=== PATIENT | male | born 1955 | race Caucasian/White ===

== ENCOUNTER 2016-12-16 08:54 | Inpatient (IN) | payer OTHER ==
[~2016-12-16] VITALS: Ht 172.7 cm; Wt 71.7 kg
[~2016-12-16 08:54] MED LIST: B COMPLETE1 EACH PO; CITRACAL + D C1 EACH PO; MILK THISTLE500 MG PO; MULTI-DAY VITA1 EACH PO; PREGNENOLONE; SPIRONOLACTONE50 MG PO; VITAMIN D33000 UNIT PO; [UNRECOGNIZED DRUG - OTHER]
[2016-12-16 09:59] LABS: HEMATOCRIT 24.6 % (38.0-50.0); MCH 34.2 PG (29.0-34.0); MCHC 32.9 G/DL (30.0-36.0); MCV 103.8 FL (86-99); RBC DIS.WIDTH-CV 17.4 % (11.8-14.6); RBC DIS.WIDTH-SD 61.9 % (39-53); RED BLOOD COUNT 2.37 M/uL (4.00-5.50); WHITE BLOOD COUNT 2.3 K/uL (4.1-10.2)
[2016-12-16 10:06] LABS: EOSINOPHIL (%) 8.7 % (0-5); EOSINOPHIL COUNT 0.2 K/uL (0-0.3); LYMPHOCYTE COUNT 0.3 K/uL (1.0-2.8); MONOCYTE (%) 14.8 % (3-12); MONOCYTE COUNT 0.3 K/uL (0-0.8); NEUTROPHIL (%) 61.7 % (45-76); NEUTROPHIL COUNT 1.4 K/uL (1.8-6.4)
[2016-12-16 10:10] LABS: CHLORIDE 110 mEq/L (99-109); POTASSIUM 3.9 mEq/L (3.7-5.4); SODIUM 136 mEq/L (136-147)
[2016-12-16 10:14] LABS: ANION GAP 5 MEQ/L (2-14); TOTAL BILIRUBIN 2.6 mg/dL (0.0-1.0)
[2016-12-16 10:16] LABS: ALKALINE PHOSPHATASE 97 IU/L (3-129); GFR ESTIMATE (CALCULATED) > 59 mL/min/
[2016-12-16 10:17] LABS: UREA NITROGEN (BUN) 18 mg/dL (9-23)
[2016-12-16 10:19] LABS: LIPASE 51 U/L (1.0-51.0)
[2016-12-16 10:23] LABS: INTER. NORMALIZED RATIO 1.4
[2016-12-16 10:38] LABS: GLUCOSE 100 mg/dL (70-99)
[2016-12-16 10:55] LABS: PLAT.SUFFICIENCY DECREASED; PLATELET COUNT 21 K/uL (156-360); USER ID STC
[2016-12-16 12:03] LABS: MEAN PLAT.VOLUME 9.1 uM^3 (9.0-12.4)
[2016-12-16] MEDS ORDERED: ALDACTONE100 MG PO (12:59)
[2016-12-16] MEDS ORDERED: CITRACAL PLUS1 EAC1 PO (13:00)
[2016-12-16] MEDS ORDERED: VITAMIN D33000 UNIT PO (13:01)
[2016-12-16] MEDS ORDERED: B-COMPLEX-VITA1 EACH PO (13:01)
[2016-12-16] MEDS ORDERED: MILK THISTLE500 MG PO (13:02)
[2016-12-16] MEDS ORDERED: [UNRECOGNIZED DRUG - OTHER] PO (13:03)
[2016-12-16] MEDS ORDERED: LASIX40 MG PO (13:04)
[2016-12-16] MEDS ORDERED: LEXAPRO10 MG PO (13:05)
[2016-12-16] MEDS ORDERED: PREGNENOLONE PO (13:06)
[2016-12-16] MEDS ORDERED: GLUTATHIONE PO (13:07)
[2016-12-16 19:44] LABS: ADD MIUA? NO; BILIRUBIN NEGATIVE; BLOOD NEGATIVE; COLOR YELLOW ((YELLOW)); GLUCOSE (STRIP) NEGATIVE; KETONES NEGATIVE; LEUKOCYTES NEGATIVE; NITRITE NEGATIVE; PROTEIN (STRIP) NEGATIVE; SPECIFIC GRAVITY 1.014 (1.000-1.030)
[2016-12-16 20:50] VITALS: BP 108/57
[2016-12-16 23:06] VITALS: BP 129/61
[2016-12-16 23:23] VITALS: BP 102/70
[2016-12-17] VITALS (13 sets, daily range): BP systolic 94–117; BP diastolic 51–64
[2016-12-17 06:20] LABS: HEMATOCRIT 28.1 % (38.0-50.0); MCH 33.7 PG (29.0-34.0); MCHC 33.8 G/DL (30.0-36.0); RBC DIS.WIDTH-CV 18.7 % (11.8-14.6); RBC DIS.WIDTH-SD 63.4 % (39-53); RED BLOOD COUNT 2.82 M/uL (4.00-5.50); WHITE BLOOD COUNT 2.7 K/uL (4.1-10.2)
[2016-12-17 06:24] LABS: CHLORIDE 112 mEq/L (99-109); POTASSIUM 4.1 mEq/L (3.7-5.4); SODIUM 137 mEq/L (136-147)
[2016-12-17 06:25] LABS: MCV 99.6 FL (86-99)
[2016-12-17 06:26] LABS: GLUCOSE 75 mg/dL (70-99)
[2016-12-17 06:27] LABS: ANION GAP 3 MEQ/L (2-14)
[2016-12-17 06:30] LABS: ALKALINE PHOSPHATASE 94 IU/L (3-129); GFR ESTIMATE (CALCULATED) > 59 mL/min/
[2016-12-17 06:31] LABS: UREA NITROGEN (BUN) 17 mg/dL (9-23)
[2016-12-17 06:40] LABS: TOTAL BILIRUBIN 3.5 mg/dL (0.0-1.0)
[2016-12-17 07:09] LABS: MEAN PLAT.VOLUME 12.3 uM^3 (9.0-12.4); PLATELET COUNT 28 K/uL (156-360)
[2016-12-17 07:34] LABS: ADD MIUA? YES; BILIRUBIN NEGATIVE; BLOOD SMALL; COLOR YELLOW ((YELLOW)); GLUCOSE (STRIP) NEGATIVE; KETONES NEGATIVE; LEUKOCYTES NEGATIVE; NITRITE NEGATIVE; PROTEIN (STRIP) NEGATIVE; SPECIFIC GRAVITY 1.016 (1.000-1.030)
[2016-12-17 07:40] LABS: BACTERIA NONE SEEN /HPF; EPITHELIAL CELLS NONE SEEN /HPF; GRANULAR CASTS 0-5 /LPF; HYALINE CASTS 0-5 /LPF; MUCUS TRACE /LPF; RED BLOOD CELLS 0-5 /HPF (0-5); WAXY CASTS 0-5 /LPF; WHITE BLOOD CELLS 0-5 /HPF (0-5); WHITE BLOOD CELLS CLUMP RARE /HPF (0-5)
[2016-12-18 04:18] VITALS: BP 99/56
[2016-12-18 06:19] LABS: ALKALINE PHOSPHATASE 85 IU/L (3-129); ANION GAP 4 MEQ/L (2-14); CHLORIDE 109 MEQ/L (99-109); GFR ESTIMATE (CALCULATED) > 59 mL/min/; GLUCOSE 92 mg/dL (70-99); SAMPLE HEMOLYSIS CHECK 0; SAMPLE ICTERIC CHECK 1; SAMPLE LIPEMIA CHECK 0; SODIUM 132 MEQ/L (136-147); TOTAL BILIRUBIN 3.4 MG/DL (0.0-1.0); UREA NITROGEN (BUN) 16 mg/dL (9-23)
[2016-12-18 07:33] LABS: HEMATOCRIT 27.7 % (38.0-50.0); MCH 32.6 PG (29.0-34.0); MCHC 33.6 G/DL (30.0-36.0); MCV 97.2 FL (86-99); PLATELET COUNT UNABLE TO REPORT K/uL (156-360); RBC DIS.WIDTH-SD 66.1 % (39-53); RED BLOOD COUNT 2.85 M/uL (4.00-5.50); WHITE BLOOD COUNT 2.6 K/uL (4.1-10.2)
[2016-12-18 08:00] VITALS: BP 105/63
[2016-12-18 17:14] VITALS: BP 104/59
[2016-12-19] VITALS: BP 98/54
[2016-12-19 06:50] LABS: EOSINOPHIL (%) 11.3 % (0-5); EOSINOPHIL COUNT 0.3 K/uL (0-0.3); IMMATURE GRANULOCYTE (%) 0.4 % (0.0-0.7); INSTRUMENT ABS NEUTROPHIL CT 1.6 K/uL; LYMPHOCYTE COUNT 0.5 K/uL (1.0-2.8); MCH 33.2 PG (29.0-34.0); MCHC 33.3 G/DL (30.0-36.0); MCV 99.6 FL (86-99); MONOCYTE (%) 9.8 % (3-12); MONOCYTE COUNT 0.3 K/uL (0-0.8); NEUTROPHIL (%) 60.8 % (45-76); NEUTROPHIL COUNT 1.6 K/uL (1.8-6.4); RBC DIS.WIDTH-CV 18.7 % (11.8-14.6); RBC DIS.WIDTH-SD 65.5 % (39-53); RED BLOOD COUNT 2.71 M/uL (4.00-5.50); WHITE BLOOD COUNT 2.7 K/uL (4.1-10.2)
[2016-12-19 07:08] LABS: ANION GAP 4 MEQ/L (2-14); CHLORIDE 110 MEQ/L (99-109); GFR ESTIMATE (CALCULATED) > 59 mL/min/; GLUCOSE 87 mg/dL (70-99); POTASSIUM 3.9 MEQ/L (3.7-5.4); SAMPLE HEMOLYSIS CHECK 0; SAMPLE ICTERIC CHECK 1; SAMPLE LIPEMIA CHECK 0; SODIUM 135 MEQ/L (136-147); UREA NITROGEN (BUN) 14 mg/dL (9-23)
[2016-12-19 07:44] LABS: ABS NEUTROPHIL COUNT 2.2; ANISOCYTOSIS 2+; BAND NEUTROPHILS 5.2 % (0-8.0); BASOPHILS 0.9 %; EOSINOPHIL ABS CT 0.2; EOSINOPHILS 7.8 % (0-5.0); IMM.PLATELET FRACTION 2.2 (1-7); LYMPHOCYTES 8.7 % (15.0-45.0); MACROCYTES 2+; MICROCYTOSIS 1+; PLATELET COUNT 24 K/uL (156-360); POLYCHROMASIA 1+; SEG.NEUTROPHILS 75.7 % (46.0-76.0); SMUDGE CELLS 9.6
[2016-12-19 07:45] LABS: PLAT.SUFFICIENCY DECREASED
[2016-12-19 08:46] VITALS: BP 107/57
[2016-12-19 12:13] VITALS: BP 127/68
== END 2016-12-19 16:55 | disposition home or self-care (01) | DRG 442 ==
LOC: EME 08:54 → EDOF 14:00 → 4SOUTH 14:00
PROVIDERS: Emergency Medicine; Internal Medicine; Internal Medicine Gastroenterology
PROC: 30233N1 Transfusion of Nonautologous Red Blood Cells into Peripheral Vein, Percutaneous Approach (ICD-10-PCS; principal; 2016-12-16)
DX: K72.90 Hepatic failure, unspecified without coma (principal); D61.818 Other pancytopenia; C22.0 Liver cell carcinoma; E87.1 Hypo-osmolality and hyponatremia; K21.9 Gastro-esophageal reflux disease without esophagitis; L43.3 Subacute (active) lichen planus; B19.20 Unspecified viral hepatitis C without hepatic coma; K74.60 Unspecified cirrhosis of liver; F32.9 Major depressive disorder, single episode, unspecified; Z87.891 Personal history of nicotine dependence
CPT/HCPCS: 76705; 80048; 80053; 81003; 82105 90; 82140; 83605; 83690; 85025; 85027; 85610; 85730; 86850; 86900; 86901; 86920; 87040; 87070; 87205; 89051; 99281; 99285; J2405; P9016

== ENCOUNTER 2016-12-21 11:28 | Inpatient (IN) | payer OTHER ==
[~2016-12-21] VITALS: Ht 170.2 cm; Wt 65.6 kg
[~2016-12-21 11:28] MED LIST changes: +ALDACTONE100 MG PO; +B-COMPLEX-VITA1 EACH PO; +CITRACAL PLUS1 EAC1 PO; +GLUTATHIONE PO; +LASIX40 MG PO; +LEXAPRO10 MG PO; +PREGNENOLONE PO; +[UNRECOGNIZED DRUG - OTHER] PO
[2016-12-21 13:05] LABS: CHLORIDE 116 mEq/L (99-109); POTASSIUM 3.8 mEq/L (3.7-5.4)
[2016-12-21 13:06] LABS: SODIUM 143 mEq/L (136-147)
[2016-12-21 13:08] LABS: GLUCOSE 112 mg/dL (70-99)
[2016-12-21 13:09] LABS: ANION GAP 6 MEQ/L (2-14)
[2016-12-21 13:10] LABS: TOTAL BILIRUBIN 4.3 mg/dL (0.0-1.0)
[2016-12-21 13:11] LABS: ALKALINE PHOSPHATASE 105 IU/L (3-129); GFR ESTIMATE (CALCULATED) > 59 mL/min/
[2016-12-21 13:15] LABS: TROP-I INTERPRETATION NEGATIVE; TROPONIN-I 0.01 ng/mL (0.0-0.30); UREA NITROGEN (BUN) 24 mg/dL (9-23)
[2016-12-21 13:29] LABS: HEMATOCRIT 29.6 % (38.0-50.0); MCHC 34.1 G/DL (30.0-36.0); MCV 99.7 FL (86-99); RBC DIS.WIDTH-CV 18.6 % (11.8-14.6); RBC DIS.WIDTH-SD 66.4 % (39-53); RED BLOOD COUNT 2.97 M/uL (4.00-5.50); WHITE BLOOD COUNT 2.9 K/uL (4.1-10.2)
[2016-12-21 13:33] LABS: IMM.PLATELET FRACTION 1.7 (1-7); MEAN PLAT.VOLUME 11.4 uM^3 (9.0-12.4)
[2016-12-21 13:37] LABS: PLATELET COUNT 33 K/uL (156-360)
[2016-12-21 14:20] LABS: ADD MIUA? YES; BILIRUBIN NEGATIVE; BLOOD MODERATE; COLOR AMBER ((YELLOW)); GLUCOSE (STRIP) NEGATIVE; KETONES NEGATIVE; LEUKOCYTES NEGATIVE; NITRITE NEGATIVE; PROTEIN (STRIP) NEGATIVE; SPECIFIC GRAVITY 1.024 (1.000-1.030)
[2016-12-21 14:25] LABS: BACTERIA NONE SEEN /HPF; EPITHELIAL CELLS RARE /HPF; HYALINE CASTS TNTC /LPF; MUCUS TRACE /LPF; UCUL ADDED? NO; WHITE BLOOD CELLS 0-5 /HPF (0-5)
[2016-12-21] MEDS ORDERED: PROMETHAZINE12.5 M1 PO (14:45)
[2016-12-21] MEDS ORDERED: GENERLAC10 GM/15 M PO (14:45)
[2016-12-21 19:40] VITALS: BP 112/64
[2016-12-21 19:50] VITALS: BP 112/64
[2016-12-22] VITALS (7 sets, daily range): BP systolic 95–112; BP diastolic 53–66
[2016-12-22 06:41] LABS: MCH 33.5 PG (29.0-34.0); MCV 101.5 FL (86-99); RBC DIS.WIDTH-CV 19.3 % (11.8-14.6); RBC DIS.WIDTH-SD 70.4 % (39-53); RED BLOOD COUNT 2.66 M/uL (4.00-5.50); WHITE BLOOD COUNT 2.1 K/uL (4.1-10.2)
[2016-12-22 07:26] LABS: ALKALINE PHOSPHATASE 87 IU/L (3-129); ANION GAP 6 MEQ/L (2-14); CHLORIDE 114 MEQ/L (99-109); GFR ESTIMATE (CALCULATED) > 59 mL/min/; GLUCOSE 85 mg/dL (70-99); POTASSIUM 3.8 MEQ/L (3.7-5.4); SAMPLE HEMOLYSIS CHECK 0; SAMPLE ICTERIC CHECK 1; SAMPLE LIPEMIA CHECK 0; SODIUM 143 MEQ/L (136-147); UREA NITROGEN (BUN) 23 mg/dL (9-23)
[2016-12-22 07:35] LABS: TOTAL BILIRUBIN 4.2 MG/DL (0.0-1.0)
[2016-12-22 09:31] LABS: IMM.PLATELET FRACTION 2.1 (1-7); MEAN PLAT.VOLUME 12.8 uM^3 (9.0-12.4); PLATELET COUNT 31 K/uL (156-360)
[2016-12-23 04:13] VITALS: BP 98/53
[2016-12-23 06:00] LABS: EOSINOPHIL (%) 10.4 % (0-5); EOSINOPHIL COUNT 0.2 K/uL (0-0.3); HEMATOCRIT 25.6 % (38.0-50.0); IMMATURE GRANULOCYTE (%) 0.5 % (0.0-0.7); INSTRUMENT ABS NEUTROPHIL CT 1.2 K/uL; LYMPHOCYTE COUNT 0.3 K/uL (1.0-2.8); MCH 33.6 PG (29.0-34.0); MCHC 32.8 G/DL (30.0-36.0); MCV 102.4 FL (86-99); MONOCYTE (%) 11.9 % (3-12); MONOCYTE COUNT 0.2 K/uL (0-0.8); NEUTROPHIL (%) 59.9 % (45-76); NEUTROPHIL COUNT 1.2 K/uL (1.8-6.4); RBC DIS.WIDTH-CV 18.7 % (11.8-14.6); RBC DIS.WIDTH-SD 70.3 % (39-53)
[2016-12-23 06:22] LABS: ALKALINE PHOSPHATASE 89 IU/L (3-129); ANION GAP 6 MEQ/L (2-14); CHLORIDE 109 MEQ/L (99-109); GFR ESTIMATE (CALCULATED) > 59 mL/min/; GLUCOSE 96 mg/dL (70-99); POTASSIUM 3.7 MEQ/L (3.7-5.4); SAMPLE HEMOLYSIS CHECK 0; SAMPLE ICTERIC CHECK 1; SAMPLE LIPEMIA CHECK 0; SODIUM 138 MEQ/L (136-147); UREA NITROGEN (BUN) 21 mg/dL (9-23)
[2016-12-23 06:23] LABS: TOTAL BILIRUBIN 3.2 MG/DL (0.0-1.0)
[2016-12-23 06:36] LABS: ABS NEUTROPHIL COUNT 1.5; ANISOCYTOSIS 2+; ATYPICAL LYMPHOCYTE 3.6 %; EOSINOPHIL ABS CT 0.1; EOSINOPHILS 7.2 % (0-5.0); HYPOCHROMASIA 2+; LYMPHOCYTES 5.4 % (15.0-45.0); MACROCYTES 1+; MICROCYTOSIS 2+; PLAT.SUFFICIENCY SIGNIFICANTDECREASED; POIKILOCYTOSIS 1+; POLYCHROMASIA 1+; SEG.NEUTROPHILS 75.7 % (46.0-76.0); SMUDGE CELLS 18.9
[2016-12-23 07:17] VITALS: BP 110/65
[2016-12-23 09:49] LABS: MEAN PLAT.VOLUME 9.6 uM^3 (9.0-12.4); PLATELET COUNT 25 K/uL (156-360)
[2016-12-23 11:50] VITALS: BP 115/78
[2016-12-23 15:35] VITALS: BP 109/65
[2016-12-23 20:40] VITALS: BP 103/60
[2016-12-24 03:50] VITALS: BP 96/53
[2016-12-24 06:22] LABS: HEMATOCRIT 24.8 % (38.0-50.0); MCH 33.6 PG (29.0-34.0); MCHC 33.5 G/DL (30.0-36.0); MCV 100.4 FL (86-99); RBC DIS.WIDTH-CV 18.2 % (11.8-14.6); RBC DIS.WIDTH-SD 66.4 % (39-53); RED BLOOD COUNT 2.47 M/uL (4.00-5.50)
[2016-12-24 06:32] LABS: ALKALINE PHOSPHATASE 89 IU/L (3-129); ANION GAP 3 MEQ/L (2-14); CHLORIDE 108 MEQ/L (99-109); GFR ESTIMATE (CALCULATED) > 59 mL/min/; GLUCOSE 91 mg/dL (70-99); POTASSIUM 3.6 MEQ/L (3.7-5.4); SAMPLE HEMOLYSIS CHECK 0; SAMPLE ICTERIC CHECK 1; SAMPLE LIPEMIA CHECK 0; SODIUM 134 MEQ/L (136-147); TOTAL BILIRUBIN 2.9 MG/DL (0.0-1.0); UREA NITROGEN (BUN) 17 mg/dL (9-23)
[2016-12-24 06:40] LABS: WHITE BLOOD COUNT 1.9 K/uL (4.1-10.2)
[2016-12-24 07:27] VITALS: BP 105/58
[2016-12-24 07:59] LABS: IMM.PLATELET FRACTION 2.3 (1-7)
[2016-12-24 08:01] LABS: MEAN PLAT.VOLUME 12.4 uM^3 (9.0-12.4); PLATELET COUNT 27 K/uL (156-360)
[2016-12-24 11:11] VITALS: BP 114/58
[2016-12-24] MEDS ORDERED: ALDACTONE100 MG PO (14:12)
[2016-12-24 16:19] VITALS: BP 121/62
== END 2016-12-24 16:03 | disposition home or self-care (01) | DRG 442 ==
LOC: EME 11:28 → 3EAST 14:00 → EDOF 14:00 → UNDODEPER 19:04 → 3EAST 19:18
PROVIDERS: Emergency Medicine; Internal Medicine; Internal Medicine Gastroenterology
DX: K72.10 Chronic hepatic failure without coma (principal); D61.818 Other pancytopenia; D68.9 Coagulation defect, unspecified; R64 Cachexia; C22.0 Liver cell carcinoma; R18.8 Other ascites; F33.9 Major depressive disorder, recurrent, unspecified; D69.6 Thrombocytopenia, unspecified; K74.60 Unspecified cirrhosis of liver; K21.9 Gastro-esophageal reflux disease without esophagitis; B18.2 Chronic viral hepatitis C; K42.9 Umbilical hernia without obstruction or gangrene; L43.9 Lichen planus, unspecified; Z68.22 Body mass index [BMI] 22.0-22.9, adult
CPT/HCPCS: 71010; 80053; 81003; 82140; 84484; 85025; 85027; 93005; 99281; 99284; J2405

== ENCOUNTER → 2017-07-01 | Outpatient (CLI) | payer OTHER ==
[~2017-07-01] MED LIST changes: +GENERLAC10 GM/15 M PO; +PROMETHAZINE12.5 M1 PO
== END | disposition home or self-care (01) ==
LOC: RAD 08:44
DX: K76.6 Portal hypertension (principal); R16.1 Splenomegaly, not elsewhere classified; K76.89 Other specified diseases of liver; I87.8 Other specified disorders of veins; R18.8 Other ascites
CPT/HCPCS: 76700; 76705

== ENCOUNTER 2017-09-18 16:49 | Inpatient (IN) | payer OTHER ==
[~2017-09-18] VITALS: Ht 172.7 cm; Wt 61.4 kg
[~2017-09-18 16:49] MED LIST changes: +GLUTATHIONE IV; -GLUTATHIONE PO; +VITAMIN D35000 UNIT PO
[2017-09-18 18:12] LABS: CHLORIDE 101 mEq/L (99-109); POTASSIUM 4.3 mEq/L (3.7-5.4); SODIUM 125 mEq/L (136-147)
[2017-09-18 18:13] LABS: HEMATOCRIT 13.4 % (38.0-50.0); IMM.PLATELET FRACTION 2.7 (1-7); MCH 36.9 PG (29.0-34.0); MCHC 33.6 G/DL (30.0-36.0); MCV 109.8 FL (86-99); MEAN PLAT.VOLUME 9.7 uM^3 (9.0-12.4); NRBC (%) 0.8 /100 WBC (0-0); RBC DIS.WIDTH-CV 17.4 % (11.8-14.6); RBC DIS.WIDTH-SD 63.1 % (39-53); RED BLOOD COUNT 1.22 M/uL (4.00-5.50); WHITE BLOOD COUNT 3.8 K/uL (4.1-10.2)
[2017-09-18 18:14] LABS: GLUCOSE 116 mg/dL (70-99)
[2017-09-18 18:16] LABS: ANION GAP 10 MEQ/L (2-14); TOTAL BILIRUBIN 2.7 mg/dL (0.0-1.0)
[2017-09-18 18:18] LABS: ALKALINE PHOSPHATASE 170 IU/L (3-129); GFR ESTIMATE (CALCULATED) 11 mL/min/ (58.99-99999)
[2017-09-18 18:19] LABS: UREA NITROGEN (BUN) 89 mg/dL (9-23)
[2017-09-18 18:20] LABS: DIRECT BILIRUBIN 1.9 mg/dL (0.0-0.3)
[2017-09-18 18:22] LABS: LIPASE 51 U/L (1.0-51.0)
[2017-09-18 18:52] LABS: PLAT.SUFFICIENCY VERY DECREASED; PLATELET COUNT 29 K/uL (156-360)
[2017-09-18] MEDS ORDERED: CELEXA20 MG PO (19:54)
[2017-09-18] MEDS ORDERED: ALDACTONE100 MG PO (19:55)
[2017-09-18] MEDS ORDERED: [UNRECOGNIZED DRUG - MIXTURE] IV (20:03)
[2017-09-18] MEDS ORDERED: FOLIC ACID1 MG PO (20:05)
[2017-09-18 20:40] VITALS: BP 76/44
[2017-09-18 20:55] VITALS: BP 79/42
[2017-09-18 21:55] VITALS: BP 64/36
[2017-09-18 22:55] VITALS: BP 71/46
[2017-09-19] VITALS (46 sets, daily range): BP systolic 82–107; BP diastolic 41–69
[2017-09-19 02:27] LABS: METH RESISTANT S AUREUS PCR NEGATIVE (NEGATIVE)
[2017-09-19 02:30] LABS: PROBE CHECK PASS; SPECIMEN PROCESSING CONTROL PASS
[2017-09-19 04:28] LABS: HEMATOCRIT 20.1 % (38.0-50.0); MCH 35.4 PG (29.0-34.0); MCHC 33.3 G/DL (30.0-36.0); MCV 106.3 FL (86-99); RBC DIS.WIDTH-CV 19.2 % (11.8-14.6); RBC DIS.WIDTH-SD 65.6 % (39-53); RED BLOOD COUNT 1.89 M/uL (4.00-5.50); WHITE BLOOD COUNT 3.1 K/uL (4.1-10.2)
[2017-09-19 04:29] LABS: INTER. NORMALIZED RATIO 2.3; PROTHROMBIN TIME 25.9 SEC (10.2-12.9)
[2017-09-19 04:31] LABS: PTT 50.3 SEC (25-37)
[2017-09-19 05:32] LABS: IMM.PLATELET FRACTION 2.5 (1-7); PLAT.SUFFICIENCY VERY DECREASED; PLATELET COUNT 37 K/uL (156-360)
[2017-09-19 09:15] LABS: HEMATOCRIT 19.1 % (38.0-50.0); MCH 36.3 PG (29.0-34.0); MCHC 34.6 G/DL (30.0-36.0); MCV 104.9 FL (86-99); NRBC (%) 1.5 /100 WBC (0-0); RBC DIS.WIDTH-CV 19.6 % (11.8-14.6); RBC DIS.WIDTH-SD 66.4 % (39-53); RED BLOOD COUNT 1.82 M/uL (4.00-5.50); WHITE BLOOD COUNT 2.6 K/uL (4.1-10.2)
[2017-09-19 09:32] LABS: INTER. NORMALIZED RATIO 1.8; PROTHROMBIN TIME 20.6 SEC (10.2-12.9)
[2017-09-19 09:33] LABS: ANION GAP 10 MEQ/L (2-14); CHLORIDE 106 MEQ/L (99-109); GFR ESTIMATE (CALCULATED) 11 mL/min/ (58.99-99999); GLUCOSE 87 mg/dL (70-99); POTASSIUM 4.9 MEQ/L (3.7-5.4); SAMPLE HEMOLYSIS CHECK 0; SAMPLE ICTERIC CHECK 1; SAMPLE LIPEMIA CHECK 0; SODIUM 129 MEQ/L (136-147); UREA NITROGEN (BUN) 92 mg/dL (9-23)
[2017-09-19 09:35] LABS: PTT 44.2 SEC (25-37)
[2017-09-19 09:38] LABS: IMM.PLATELET FRACTION 1.6 (1-7); MEAN PLAT.VOLUME 10.8 uM^3 (9.0-12.4); PLATELET COUNT 32 K/uL (156-360)
[2017-09-19 09:39] LABS: PLAT.SUFFICIENCY VERY DECREASED
[2017-09-19 13:21] LABS: HEMATOCRIT 22.3 % (38.0-50.0); MCH 34.5 PG (29.0-34.0); MCHC 34.5 G/DL (30.0-36.0); NRBC (%) 0.9 /100 WBC (0-0); RBC DIS.WIDTH-CV 18.9 % (11.8-14.6); RBC DIS.WIDTH-SD 62.4 % (39-53); WHITE BLOOD COUNT 3.4 K/uL (4.1-10.2)
[2017-09-19 13:22] LABS: RED BLOOD COUNT 2.23 M/uL (4.00-5.50)
[2017-09-19 14:10] LABS: IMM.PLATELET FRACTION 1.7 (1-7); MEAN PLAT.VOLUME 10.6 uM^3 (9.0-12.4); PLAT.SUFFICIENCY DECREASED; PLATELET COUNT 35 K/uL (156-360)
[2017-09-20] VITALS (13 sets, daily range): BP systolic 99–112; BP diastolic 56–63
[2017-09-20 04:34] LABS: HEMATOCRIT 25.3 % (38.0-50.0); MCH 33.5 PG (29.0-34.0); MCV 98.4 FL (86-99); NRBC (%) 0.7 /100 WBC (0-0); RBC DIS.WIDTH-CV 20.9 % (11.8-14.6); RBC DIS.WIDTH-SD 66.2 % (39-53); RED BLOOD COUNT 2.57 M/uL (4.00-5.50); WHITE BLOOD COUNT 2.9 K/uL (4.1-10.2)
[2017-09-20 04:49] LABS: CHLORIDE 111 mEq/L (99-109); POTASSIUM 4.7 mEq/L (3.7-5.4); SODIUM 133 mEq/L (136-147)
[2017-09-20 04:52] LABS: ANION GAP 12 MEQ/L (2-14)
[2017-09-20 04:53] LABS: TOTAL BILIRUBIN 7.2 mg/dL (0.0-1.0)
[2017-09-20 04:55] LABS: ALKALINE PHOSPHATASE 141 IU/L (3-129); GFR ESTIMATE (CALCULATED) 11 mL/min/ (58.99-99999)
[2017-09-20 04:56] LABS: UREA NITROGEN (BUN) 91 mg/dL (9-23)
[2017-09-20 05:02] LABS: GLUCOSE 113 mg/dL (70-99)
[2017-09-20 05:38] LABS: IMM.PLATELET FRACTION 1.9 (1-7); MEAN PLAT.VOLUME 10.7 uM^3 (9.0-12.4); PLATELET COUNT 36 K/uL (156-360)
[2017-09-21 05:48] LABS: HEMATOCRIT 25.1 % (38.0-50.0); MCH 34.3 PG (29.0-34.0); MCHC 34.3 G/DL (30.0-36.0); NRBC (%) 0.5 /100 WBC (0-0); RBC DIS.WIDTH-CV 21.9 % (11.8-14.6); RED BLOOD COUNT 2.51 M/uL (4.00-5.50); WHITE BLOOD COUNT 3.9 K/uL (4.1-10.2)
[2017-09-21 06:49] LABS: ALKALINE PHOSPHATASE 119 IU/L (3-129); ANION GAP 12 MEQ/L (2-14); CHLORIDE 113 MEQ/L (99-109); GFR ESTIMATE (CALCULATED) 10 mL/min/ (58.99-99999); GLUCOSE 134 mg/dL (70-99); IRON 21 MCG/DL (35-150); POTASSIUM 4.5 MEQ/L (3.7-5.4); SAMPLE HEMOLYSIS CHECK 0; SAMPLE ICTERIC CHECK 2; SAMPLE LIPEMIA CHECK 0; SODIUM 136 MEQ/L (136-147); TOTAL BILIRUBIN 8.3 MG/DL (0.0-1.0); UREA NITROGEN (BUN) 95 mg/dL (9-23); URIC ACID 12.6 mg/dL (3.1-9.2)
[2017-09-21 07:14] LABS: IMM.PLATELET FRACTION 1.6 (1-7); MEAN PLAT.VOLUME 10.5 uM^3 (9.0-12.4); PLAT.SUFFICIENCY DECREASED; PLATELET COUNT 31 K/uL (156-360)
[2017-09-21 08:00] VITALS: BP 95/53
[2017-09-21 15:51] VITALS: BP 90/54
[2017-09-22 00:36] VITALS: BP 110/64
[2017-09-22 01:01] LABS: ADD MIUA? YES; BILIRUBIN NEGATIVE; BLOOD SMALL; COLOR AMBER ((YELLOW)); GLUCOSE (STRIP) NEGATIVE; KETONES NEGATIVE; LEUKOCYTES NEGATIVE; NITRITE NEGATIVE; PROTEIN (STRIP) NEGATIVE; SPECIFIC GRAVITY 1.013 (1.000-1.030); UROBILINOGEN 0.2 MG/DL (0.2-1.0)
[2017-09-22 01:07] LABS: BACTERIA RARE /HPF; EPITHELIAL CELLS RARE /HPF; MUCUS TRACE /LPF; RED BLOOD CELLS 0-5 /HPF (0-5); WHITE BLOOD CELLS 0-5 /HPF (0-5)
[2017-09-22 05:29] LABS: UR CREATININE CONCENTRATION 119.5 MG/DL
[2017-09-22 06:32] LABS: HEMATOCRIT 27.6 % (38.0-50.0); MCH 34.3 PG (29.0-34.0); MCHC 33.7 G/DL (30.0-36.0); MCV 101.8 FL (86-99); RBC DIS.WIDTH-CV 22.2 % (11.8-14.6); RBC DIS.WIDTH-SD 72.9 % (39-53); RED BLOOD COUNT 2.71 M/uL (4.00-5.50)
[2017-09-22 07:13] LABS: ANION GAP 13 MEQ/L (2-14); CHLORIDE 113 MEQ/L (99-109); GFR ESTIMATE (CALCULATED) 10 mL/min/ (58.99-99999); GLUCOSE 124 mg/dL (70-99); MAGNESIUM 2.4 mg/dl (1.3-2.7); POTASSIUM 4.4 MEQ/L (3.7-5.4); SAMPLE HEMOLYSIS CHECK 0; SAMPLE ICTERIC CHECK 3; SAMPLE LIPEMIA CHECK 0; SODIUM 139 MEQ/L (136-147); UREA NITROGEN (BUN) 90 mg/dL (9-23)
[2017-09-22 07:18] LABS: EOSINOPHIL (%) 0.5 % (0-5); HEMATOLOGY COMMENT 1 SMEAR COMPATIBLE; IMM.PLATELET FRACTION 1.6 (1-7); IMMATURE GRANULOCYTE (%) 1.8 % (0.0-0.7); IMMATURE GRANULOCYTE COUNT 0.1 K/uL; INSTRUMENT ABS NEUTROPHIL CT 3.4 K/uL; LYMPHOCYTE COUNT 0.2 K/uL (1.0-2.8); MONOCYTE (%) 8.8 % (3-12); MONOCYTE COUNT 0.4 K/uL (0-0.8); NEUTROPHIL (%) 84.9 % (45-76); NEUTROPHIL COUNT 3.4 K/uL (1.8-6.4); PLAT.SUFFICIENCY DECREASED; PLATELET COUNT 30 K/uL (156-360)
[2017-09-22 08:50] VITALS: BP 106/64
[2017-09-22 16:20] VITALS: BP 109/68
[2017-09-23] VITALS: BP 108/58
[2017-09-23 06:23] LABS: IMMATURE GRANULOCYTE (%) 2.8 % (0.0-0.7); IMMATURE GRANULOCYTE COUNT 0.1 K/uL; INSTRUMENT ABS NEUTROPHIL CT 3.3 K/uL; LYMPHOCYTE COUNT 0.1 K/uL (1.0-2.8); MCH 34.3 PG (29.0-34.0); MCHC 34.8 G/DL (30.0-36.0); MCV 98.5 FL (86-99); MONOCYTE (%) 6.9 % (3-12); MONOCYTE COUNT 0.3 K/uL (0-0.8); NEUTROPHIL (%) 85.7 % (45-76); NEUTROPHIL COUNT 3.3 K/uL (1.8-6.4); RBC DIS.WIDTH-CV 21.7 % (11.8-14.6); RBC DIS.WIDTH-SD 69.7 % (39-53); RED BLOOD COUNT 2.74 M/uL (4.00-5.50); WHITE BLOOD COUNT 3.9 K/uL (4.1-10.2)
[2017-09-23 06:56] LABS: ALKALINE PHOSPHATASE 109 IU/L (3-129); ANION GAP 12 MEQ/L (2-14); ANION GAP 13 MEQ/L (2-14); CHLORIDE 110 MEQ/L (99-109); GFR ESTIMATE (CALCULATED) 10 mL/min/ (58.99-99999); GLUCOSE 168 mg/dL (70-99); MAGNESIUM 2.4 mg/dl (1.3-2.7); POTASSIUM 3.9 MEQ/L (3.7-5.4); SAMPLE HEMOLYSIS CHECK 0; SAMPLE ICTERIC CHECK 3; SAMPLE LIPEMIA CHECK 0; SODIUM 141 MEQ/L (136-147); UREA NITROGEN (BUN) 83 mg/dL (9-23)
[2017-09-23 07:04] LABS: PLAT.SUFFICIENCY VERY DECREASED
[2017-09-23 07:07] LABS: TOTAL BILIRUBIN 14.2 MG/DL (0.0-1.0)
[2017-09-23 08:51] VITALS: BP 107/61
[2017-09-23 13:31] LABS: MEAN PLAT.VOLUME 11.1 uM^3 (9.0-12.4); PLATELET COUNT 27 K/uL (156-360)
[2017-09-23 16:45] VITALS: BP 107/62
[2017-09-23 20:45] VITALS: BP 117/69
[2017-09-23 23:12] VITALS: BP 116/66
[2017-09-24 05:46] LABS: EOSINOPHIL (%) 1.3 % (0-5); EOSINOPHIL COUNT 0.1 K/uL (0-0.3); HEMATOCRIT 27.3 % (38.0-50.0); IMMATURE GRANULOCYTE (%) 2.4 % (0.0-0.7); IMMATURE GRANULOCYTE COUNT 0.1 K/uL; INSTRUMENT ABS NEUTROPHIL CT 3.2 K/uL; LYMPHOCYTE COUNT 0.2 K/uL (1.0-2.8); MCH 34.6 PG (29.0-34.0); MCHC 35.5 G/DL (30.0-36.0); MCV 97.5 FL (86-99); MONOCYTE (%) 5.9 % (3-12); MONOCYTE COUNT 0.2 K/uL (0-0.8); NEUTROPHIL (%) 85.6 % (45-76); NEUTROPHIL COUNT 3.2 K/uL (1.8-6.4); RBC DIS.WIDTH-CV 21.5 % (11.8-14.6); RBC DIS.WIDTH-SD 72.7 % (39-53); WHITE BLOOD COUNT 3.7 K/uL (4.1-10.2)
[2017-09-24 06:31] LABS: ALKALINE PHOSPHATASE 110 IU/L (3-129); ANION GAP 10 MEQ/L (2-14); CHLORIDE 106 MEQ/L (99-109); GFR ESTIMATE (CALCULATED) 11 mL/min/ (58.99-99999); GLUCOSE 159 mg/dL (70-99); GLUCOSE 160 mg/dL (70-99); MAGNESIUM 2.2 mg/dl (1.3-2.7); POTASSIUM 3.7 MEQ/L (3.7-5.4); POTASSIUM 3.8 MEQ/L (3.7-5.4); SAMPLE HEMOLYSIS CHECK 0; SAMPLE ICTERIC CHECK 3; SAMPLE LIPEMIA CHECK 0; SODIUM 142 MEQ/L (136-147); UREA NITROGEN (BUN) 76 mg/dL (9-23); UREA NITROGEN (BUN) 78 mg/dL (9-23)
[2017-09-24 06:32] LABS: TOTAL BILIRUBIN 17.5 MG/DL (0.0-1.0)
[2017-09-24 06:57] LABS: ABS NEUTROPHIL COUNT 3.4; ANISOCYTOSIS 2+; BAND NEUTROPHILS 0.9 % (0-8.0); BASOPHILS 1.7 %; BURR CELLS 2+; EOSINOPHIL ABS CT 0; EOSINOPHILS 0.9 % (0-5.0); HEMATOLOGY COMMENT 1 SN; IMM.PLATELET FRACTION 1.1 (1-7); LYMPHOCYTES 1.7 % (15.0-45.0); MACROCYTES 2+; MEAN PLAT.VOLUME 10.9 uM^3 (9.0-12.4); PLAT.SUFFICIENCY DECREASED; POIKILOCYTOSIS 3+; SEG.NEUTROPHILS 90.4 % (46.0-76.0)
[2017-09-24 07:36] LABS: PLATELET COUNT 26 K/uL (156-360)
[2017-09-24 07:49] VITALS: BP 105/63
[2017-09-24 17:21] VITALS: BP 111/60
[2017-09-24 23:24] VITALS: BP 119/62
[2017-09-25 06:39] LABS: ANION GAP 10 MEQ/L (2-14); CHLORIDE 106 MEQ/L (99-109); GFR ESTIMATE (CALCULATED) 10 mL/min/ (58.99-99999); GLUCOSE 102 mg/dL (70-99); POTASSIUM 4.5 MEQ/L (3.7-5.4); SAMPLE HEMOLYSIS CHECK 0; SAMPLE ICTERIC CHECK 4; SAMPLE LIPEMIA CHECK 0; SODIUM 144 MEQ/L (136-147); UREA NITROGEN (BUN) 82 mg/dL (9-23)
[2017-09-25 15:04] VITALS: BP 00/00
== END 2017-09-25 15:13 | disposition hospice, home (50) | DRG 368 ==
LOC: EME 16:49 → 5EAST 20:15 → EDOF 20:15 → 4WEST 20:15 → ENRESERV 20:29 → EDOF 23:32 → ENRESERV 23:34 → 4WEST 09-19 00:41 → ENRESERV 09-20 05:32 → 5EAST 09-20 08:11 → ENPENDDIS 09-25 14:45 → 5EAST 09-25 15:13
PROVIDERS: Emergency Medicine; Internal Medicine; Internal Medicine Critical Care Medicine; Internal Medicine Gastroenterology; Internal Medicine Nephrology; Surgery
DX: I85.11 Secondary esophageal varices with bleeding (principal); N17.0 Acute kidney failure with tubular necrosis; B18.2 Chronic viral hepatitis C; C22.0 Liver cell carcinoma; D61.818 Other pancytopenia; D62 Acute posthemorrhagic anemia; N18.4 Chronic kidney disease, stage 4 (severe); K72.90 Hepatic failure, unspecified without coma; E87.1 Hypo-osmolality and hyponatremia; K76.7 Hepatorenal syndrome; R57.8 Other shock; Z51.5 Encounter for palliative care; K21.9 Gastro-esophageal reflux disease without esophagitis; Z66 Do not resuscitate; E41 Nutritional marasmus; E46 Unspecified protein-calorie malnutrition; Z68.20 Body mass index [BMI] 20.0-20.9, adult; K74.60 Unspecified cirrhosis of liver; E87.2 Acidosis; R18.8 Other ascites; L89.150 Pressure ulcer of sacral region, unstageable; D68.9 Coagulation defect, unspecified; L43.9 Lichen planus, unspecified; F12.10 Cannabis abuse, uncomplicated; D63.8 Anemia in other chronic diseases classified elsewhere; K76.6 Portal hypertension; E86.1 Hypovolemia; K31.89 Other diseases of stomach and duodenum; K52.9 Noninfective gastroenteritis and colitis, unspecified; K80.20 Calculus of gallbladder without cholecystitis without obstruction; Z85.05 Personal history of malignant neoplasm of liver; K42.9 Umbilical hernia without obstruction or gangrene; Z87.891 Personal history of nicotine dependence
CPT/HCPCS: 76705; 76770; 76775; 80048; 80053; 80069; 81003; 82140; 82248; 82570; 83540; 83690; 83735; 84100; 84156; 84300; 84466; 84550; 85025; 85027; 85610; 85730; 86850; 86900; 86901; 86920; 87641; 94799; 99281; 99285; A6214; A6260; C9113; J2270; J2354; J2405; J7030; J7050; J7070; P9016; P9017; P9035; P9047